=== PATIENT | male | born 1980 | race Caucasian/White ===

== ENCOUNTER 2023-08-02 23:34 | Emergency (ER) | payer OTHER ==
[~2023-08-02] VITALS: Ht 172.7 cm; Wt 79.4 kg
[2023-08-02] MEDS ORDERED: LEVO125T PO (23:54)
[2023-08-03 00:52] VITALS: BP 143/98; O2SAT 97
== END 2023-08-03 00:53 | disposition home or self-care (01) ==
LOC: ER 23:41
DX: T18.9XXA Foreign body of alimentary tract, part unspecified, initial encounter (principal); Z98.890 Other specified postprocedural states; Z79.899 Other long term (current) drug therapy; Z88.1 Allergy status to other antibiotic agents; Y92.89 Other specified places as the place of occurrence of the external cause
CPT/HCPCS: 71045; 74018; A4606; A4663